=== PATIENT | male | born 1990 | race Caucasian/White ===

== ENCOUNTER 2017-12-09 19:05 | Emergency (ER) | payer SELFPAY ==
[2017-12-09 19:06] VITALS: BP 144/85; PULSE 83; RESP 17; TEMP 36; O2SAT 99; BMI 40.7
--- NOTE | 2017-12-09 19:29 | RAD_ITS ---
STUDY: X-RAY - LEFT FOOT CLINICAL: Male, 27 years old. Pain. Injury. TECHNIQUE: 3 view(s) of the foot. COMPARISON: None. FINDINGS: Normal talus, calcaneus, and tarsal bones. Normal visualized subtalar, talonavicular, calcaneocuboid, tarsal and tarsometatarsal articulations. Normal metatarsi. Normal metatarsophalangeal joint of the great toe. Normal tibial and fibular sesamoid bones. Normal interphalangeal joint of the great toe. Normal phalanges of the great toe. Normal second through fifth metatarsophalangeal joints. Normal interphalangeal joints and phalanges of the lesser toes. The soft tissue structures are unremarkable. There is no demonstrated fracture. RAD/Foot min 3 Views IMPRESSION: Normal x-ray examination of the foot. Electronically Signed: Rony Torres MD at 19:50 EDT , Service support ,
[2017-12-09] MEDS: Naproxen 250 MG Tablet 500 MG PO (19:37)
--- NOTE | 2017-12-09 20:03 | ED.DCSUM_ITS ---
- ER Visit Summary Date of Service: 12/09/17 Chief Complaint: Left foot pain History of Present Illness: The patient is a 27 M with no primary care physician. He reports that he was jumping on a trampoline tonight and heard a pop and had immediate pain in his left foot. He describes as sharp pain Zeta 10 with walking 4-10 at rest. Is not taking anything for pain. He denies any other injuries or complaints. Physical Examination: Vitals: Stable. Afebrile. Neck: No vertebral tenderness. Full ROM without difficulty. Cleared by NEXUS criteria. Back: No vertebral tenderness. General: A&O x 3. NAD. Cardiovascular exam: Regular rate and rhythm, no murmur, rub or gallop. Respiratory exam: Chest nontender. No crepitus. Clear to auscultation bilaterally. No wheezes or stridor. Abdominal exam: Soft, nontender, nondistended, normal bowel sounds. No pain in RUQ or LUQ specifically. No peritoneal signs. Extremity: Moderate tenderness palpation over the distal portion of the first metatarsal. There is contusion here. There is no soft tissue swelling. He is a 2+ dorsalis pedis pulse. Normal sensation light touch throughout. Test Results: X-ray is negative. Emergency Department Course and Treatment: Patient was treated with naproxen placed in a postop shoe. Treatment Plan: He will be discharged with instructions to follow-up with the [facility] in 1 week if not improving. Disposition: To home in improved and stable condition. Impression: 1. Left foot sprain. This note was generated with [employer] dictation software. It may contain incorrect words, spelling, and punctuation that were not noted in review of the chart prior to signing ED Disposition - Plan for ED Patient: Disposition: Home or Assisted Living Chief Complaint: Lower Extremity Injury Instructions: ED Sprain Foot Prescriptions: Naproxen [Naprosyn] 500 mg PO BID #20 tablet Referrals: [facility] [NON-STAFF] - 1 Week if not improving
[2017-12-09 20:15] VITALS: BP 135/74; PULSE 85; RESP 14; O2SAT 99
== END 2017-12-09 20:16 | disposition home or self-care (01) ==
PROVIDERS: Emergency Provider Emergency Medicine
DX: S93.602A Unspecified sprain of left foot, initial encounter (principal); X58.XXXA Exposure to other specified factors, initial encounter; Y93.44 Activity, trampolining; Y92.9 Unspecified place or not applicable; Z90.49 Acquired absence of other specified parts of digestive tract
CPT/HCPCS: 73630; 99283